=== PATIENT | female | born 1990 | race Caucasian/White ===

== ENCOUNTER 2019-02-02 17:09 | Emergency (ER) | payer OTHER, SELFPAY ==
[2019-02-02 17:10] VITALS: BP 119/79; PULSE 62; RESP 19; TEMP 36.5; O2SAT 98; BMI 26.6
--- NOTE | 2019-02-02 17:30 | ED.EXTPRO ---
HPI - Extremity Problem General Chief complaint: Extremity Problem,Nontraumatic Stated complaint: states poison madelyn burn left arm, not improving Time Seen by Provider: 02/02/19 17:11 Source: patient Mode of arrival: ambulatory Limitations: no limitations History of Present Illness HPI Narrative: 28-year-old female nonsmoker and otherwise healthy presents with worsening poison madelyn rash her left upper extremity. She has multiple itchy clear fluid-filled blisters on red swollen skin. She developed this rash after camping. 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 She denies any tongue lip or throat swelling. She denies any difficulty breathing. MD Complaint: extremity swelling Onset (ago): day(s) Location: left Quality: burning Radiation: none Related Data Previous Rx's Medication Instructions Recorded prednisone 20 mg PO BID 5 Days #10 tab 02/02/19 Allergies Allergy/AdvReac Type Severity Reaction Status Date / Time No Known Drug Allergies Allergy Verified 02/02/19 17:22 Review of Systems Constitutional Denies chills, Denies fever(s), Denies lethargy and Denies weakness Eyes Denies change in vision, Denies eye discharge, Denies irritation and Denies loss of vision ENT Ears, Nose, Mouth, and Throat: Denies change in voice, Denies neck pain and Denies sore throat Cardiovascular Denies chest pain, Denies irregular heart rhythm, Denies lightheadedness, Denies palpitations, Denies dyspnea, Denies dyspnea on exertion and Denies orthopnea Respiratory Denies cough, Denies dyspnea, Denies dyspnea on exertion and Denies wheezing Gastrointestinal Gastrointestinal: Denies abdominal pain, Denies change in bowel habits, Denies diarrhea, Denies nausea and Denies vomiting Genitourinary Denies hematuria, Denies flank pain, Denies urinary incontinence and Denies urinary urgency Musculoskeletal Denies neck pain Integumentary/Breasts Denies pruritus, Denies erythema, Denies rash, Reports skin pain, Reports skin swelling and Denies wounds Neurologic Denies confusion, Denies loss of vision and Denies weakness Psychiatric Denies anxiety, Denies confusion, Denies depression, Denies homicidal ideation and Denies suicidal ideation Endocrine Denies palpitations Hematologic/Lymphatic Denies easy bruising Allergic/Immunologic Denies wheezing [facility] Social History Smoking Status: Never smoker Social History Smoking Status: Never smoker Exam Narrative Exam Narrative: GEN: AOx3 and in mild distress EYES: Pupils are equal, round, and reactive to light and accommodation. Extraoccular muscles are intact bilaterally. There is no subconjunctival hemorrhage or exudate. CHEST: Lungs are clear to auscultation bilaterally and free of wheezes, rales, or rhonchi. Heart rate is regular rhythm, there are no murmurs, clicks, rubs, or gallops. There is no chest wall tenderness. ABD: Abdomen is soft and nontender. There is no guarding or rebound. Bowel sounds are normal in all 4 quadrants. There is no mass or organomegaly. EXT: Left upper extremity has some swelling with redness and multiple clear fluid-filled blisters which are intensely pruritic Full painless ROM of all extremities with no loss of sensation or strength. SKIN: Warm, pink, and dry. No erythema or rash Initial Vital Signs Initial Vital Signs: Vital Signs Temperature 97.7 F 02/02/19 17:10 Pulse Rate 62 02/02/19 17:10 Respiratory Rate 19 02/02/19 17:10 Blood Pressure 119/79 02/02/19 17:10 Pulse Oximetry 98 02/02/19 17:10 Course Vital Signs - 8 hr 02/02/19 17:10 Temperature 97.7 F Pulse Rate 62 Respiratory Rate 19 Blood Pressure 119/79 Pulse Oximetry 98 Discharge Plan Departure Patient Disposition: Home Clinical Impression: Rhus dermatitis Discharge Date/Time: 02/02/19 17:30 Interventions: ED Discharge Assessment Last Done: 02/02/19 17:29 Instructions: DI for Poison [place] Allergy, DI for Poison Madelyn Allergy Activity Restrictions/Additional Instructions: *You have been diagnosed with [ acute rhus dermatitis ] *What to do: *Take medications as directed: Your prescription for Prednisone was electronically transmitted to [facility] at your request *Also consider taking over the county Zyrtec (cetirizine) and Pepcid for the redness and itching *Follow up with your primary care provider in 2-3 days, call for an appointment. Let them know you were seen in the Emergency Department and that we ask that you be seen in follow up *Return to ER if you should have any new, worsening or concerning symptoms Prescriptions: New prednisone 20 mg tablet 20 mg PO BID 5 Days Qty: 10 RF: 0
== END 2019-02-02 17:30 | disposition home or self-care (01) ==
LOC: ED 17:27
PROVIDERS: Emergency Provider Emergency Medicine
DX: L25.5 Unspecified contact dermatitis due to plants, except food (principal)
CPT/HCPCS: 99282; 99283

== ENCOUNTER 2019-04-23 16:44 | Emergency (ER) | payer OTHER, SELFPAY ==
[2019-04-23 16:52] VITALS: BP 124/65; PULSE 81; RESP 15; TEMP 36.6; O2SAT 100
--- NOTE | 2019-04-23 17:04 | PC.NURSE ---
Couple weeks ago patient has severe sore throat, was evaluated for swelling in neck told she had swollen lymph nodes and prescribed aleve. Started having pain on left side of rib cage under the ribs. Denies pain with palpation of ribs but deeper pain with deep breaths. Denies cough, SOB or fever. Has been resting some minimal improvement with heating pad.
--- NOTE | 2019-04-23 17:23 | DI.RAD.S_ITS ---
PROCEDURE: XR CHEST 2V INDICATIONS: left rib pain recent virus TECHNIQUE: 2 views of the chest were acquired. COMPARISON: None. FINDINGS: Surgical changes and devices: None. Lungs and pleura: Lungs are clear. No pleural effusions or pneumothorax. Mediastinum: Mediastinal contours are normal. Heart size is normal. Bones and chest wall: No suspicious bony abnormalities. Soft tissues appear unremarkable. IMPRESSION: Mildly reduced inspiratory volume, no acute disease. Source is found. Dictated by: Shyam Carrero M.D. on 04/23/2019 at 17:46 Approved by: Shyam Carrero M.D. on 04/23/2019 at 17:46
[2019-04-23] MEDS: ACETAMINOPHEN 325 MG TABLET 975 MG PO (18:12)
--- NOTE | 2019-04-23 19:16 | ED.URI ---
HPI - URI/Sore Throat <NEVIN Collins - Last Filed: 04/23/19 19:48> General Chief Complaint: Upper Respiratory Symptoms Stated Complaint: PAIN ON LEFT SIDE OF RIB HARD TIME BREATHING Time Seen by Provider: 04/23/19 17:35 Source: patient Mode of arrival: ambulatory Limitations: no limitations History of Present Illness HPI Narrative: This is a 29-year-old female, nonsmoker, presents to ED with left-sided low rib cage discomfort for 1 week. Patient reports pain increases with movement, laughing, sleeping on left side. Patient denies cough, sore throat, fever, chills, nausea, vomiting or feeling sick. Denies any recent injury or trauma to the affected site. The patient reports recently seen in [facility] about a week ago and had negative test results for mono infection, strep throat infection. Patient also had enlarged lymph nodes and had ultrasound test done and diagnosed with reactive submandibular lymph nodes. Patient denies having blood clotting problems in the past. She denies taking estrogen or prolonged recent travel. Patient has been taking Naprosyn twice a day for this. Patient has IUD for control method. Related Data Previous Rx's Medication Instructions Recorded tramadol 50 mg PO BID PRN #7 tab MDD 1- 2 04/23/19 tabs Allergies Allergy/AdvReac Type Severity Reaction Status Date / Time No Known Drug Allergies Allergy Verified 02/02/19 17:22 Review of Systems <NEVIN Collins - Last Filed: 04/23/19 19:48> Review of Systems ROS Unobtainable: All systems reviewed & are unremarkable except as noted in HPI and below PFSH <NEVIN Collins - Last Filed: 04/23/19 19:48> Medical History No significant past medical history (Acute) No significant past surgical history (Acute) Social History Smoking Status: Never smoker Social History Smoking Status: Never smoker Exam <NEVIN Collins - Last Filed: 04/23/19 19:48> Narrative Exam Narrative: GEN: Alert, oriented x 3, well appearing and nourished, and in no acute distress. Head: Normal cephalic, atraumatic. No scalp or temporal tenderness, palpable mass or rash. EYES: Pupils are equal, round, and reactive to light and accommodation. Extraocular muscles are intact bilaterally. There is no subconjunctival hemorrhage, exudate and sclera non-icteric. ENT: Hearing grossly intact. Nose without bleeding, purulent discharge. Mucous membrane moist, no mucosal lesion. Throat without erythema or exudates but with tonsillar hypertrophy. Uvula in midline, airway patent. Neck: Trachea in midline. No JVD, non-tender to palpate in cervical lymph nodes. Bilateral cervical lymph nodes mildly enlarged. No masses or thyroid megaly. Supple, non-tender and no meningeal signs. CARDIAC: Normal regular rate and rhythm without murmurs, gallops, or rubs. No chest wall tenderness. No peripheral edema, cyanosis or pallor. Capillary refill is less than 2 seconds. RESPIRATORY: Lungs are cleat to auscultate bilaterally. No cough, wheezes, rales, or rhonchi. No stridor, respiratory distress, increase work of breathing, or accessary muscle used. ABD: Abdomen soft, nontender and non-distended. No guarding or rebound tenderness to palpate. Bowel sounds are normal in all 4 quadrants. There is no palpable masses or organomegaly. EXT: Full painless ROM of all extremities with no loss of sensation, strength, effusion or edema. SKIN: Warm, dry, normal color for patient. No erythema, lesions or rash over visible areas. BACK: Nontender without deformity or crepitance. No flank tenderness. NEUROLOGICAL: Alert and oriented to place, time and person. Sensation and motor function intact bilaterally. No facial droops, dysphasia. PSYCHIATRIC: Good judgement and reason, without hallucinations, abnormal affect or abnormal behaviors during the examination. Initial Vital Signs Initial Vital Signs: Vital Signs Temperature 97.8 F 04/23/19 16:52 Pulse Rate 81 04/23/19 16:52 Respiratory Rate 15 04/23/19 16:52 Blood Pressure 124/65 04/23/19 16:52 Pulse Oximetry 100 04/23/19 16:52 <Savi Peck MD - Last Filed: 04/23/19 19:56> Initial Vital Signs Initial Vital Signs: Vital Signs Temperature 97.8 F 04/23/19 16:52 Pulse Rate 81 04/23/19 16:52 Respiratory Rate 15 04/23/19 16:52 Blood Pressure 124/65 04/23/19 16:52 Pulse Oximetry 100 04/23/19 16:52 Course <NEVIN Collins - Last Filed: 04/23/19 19:48> Orders Ordered: ED Orders 04/23/19 17:23 XR chest 2V Stat Discontinued Medications Acetaminophen (Tylenol) 975 mg PO NOW ONE Stop: 04/23/19 18:09 Last Admin: 04/23/19 18:12 Dose: 975 mg Vital Signs - 8 hr 04/23/19 16:52 Temperature 97.8 F Pulse Rate 81 Respiratory Rate 15 Blood Pressure 124/65 Pulse Oximetry 100 <Savi Peck MD - Last Filed: 04/23/19 19:56> Orders Ordered: ED Orders 04/23/19 17:23 XR chest 2V Stat Discontinued Medications Acetaminophen (Tylenol) 975 mg PO NOW ONE Stop: 04/23/19 18:09 Last Admin: 04/23/19 18:12 Dose: 975 mg Vital Signs - 8 hr 04/23/19 16:52 Temperature 97.8 F Pulse Rate 81 Respiratory Rate 15 Blood Pressure 124/65 Pulse Oximetry 100 MDM - URI/Sore Throat <NEVIN Collins - Last Filed: 04/23/19 19:48> Differential Diagnosis Differential diagnosis: Likely pharyngitis and other (Chest wall pain, pleuritic chest pain, pneumonia, PE, shingles) Medical Records Attestation: I reviewed the patient's medical records. Imaging Data Chest x-ray: Radiologist's impression: [address] [address] XRay Report Signed Patient: Riley Horn#: [id number] : 1990Acct:[id number] Age/Sex: 29 / FDate of Service: 04/23/19 Loc: ED Accession Number: [id number] Procedure: XR chest 2V Ordering Provider: Delbert Hoffman PROCEDURE: XR CHEST 2V INDICATIONS: left rib pain recent virus TECHNIQUE: 2 views of the chest were acquired. COMPARISON: None. FINDINGS: Surgical changes and devices: None. Lungs and pleura: Lungs are clear. No pleural effusions or pneumothorax. Mediastinum: Mediastinal contours are normal. Heart size is normal. Bones and chest wall: No suspicious bony abnormalities. Soft tissues appear unremarkable. IMPRESSION: Mildly reduced inspiratory volume, no acute disease. Source is found. Dictated by: Shyam Carrero M.D. on 04/23/2019 at 17:46 Approved by: Shyam Carrero M.D. on 04/23/2019 at 17:46 [facility] Narrative Medical decision making narrative: The patient has been having left-sided under the rib discomfort for a week. Patient was seen and [facility] about a week ago for some mandibular lymph node swelling on the right side. She brought her test results from [facility] today which showed negative acute mono infection. 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 HPV-1 was negative per the test. Patient was not tachycardia while in ED. Patient is not currently on estrogen or or is a smoker. He denies having recent prolonged travel to be considered pulmonary embolism. Well's criteria for PE was 0. The patient's chest x-ray shows no acute findings. There was no rash noted on her back or along the rib area and rest of physical exam was benign. The patient was medicated with Tylenol in ED and DC to home with few tabs of Tramadol for night use during sleep for comfort. Return precautions were discussed with patient and patient does not have further questions at this time. Patient advised to up with her primary care physician in 2-3 days. Discharge Plan Departure Patient Disposition: Home Clinical Impression: Chest wall pain Discharge Date/Time: 04/23/19 18:58 Interventions: ED Discharge Assessment Last Done: 04/23/19 18:58 Instructions: DI for Costochondritis Activity Restrictions/Additional Instructions: You have been diagnosed with [chest wall pain, the chest x-ray shows no acute findings.]. What to do: *Take your medications as directed. Please continue to take [id number] Tylenol and ibuprofen as needed for discomfort. You could add Tramadol 1-2 tabs as needed for severe pain at night. This is going to cause drowsiness so please do not drive, drink alcohol, heavy equipments. *Follow up with your primary care provider in 2-3 days, call for an appointment. Let them know you were seen in the ED and that we asked you to be seen in follow up. *Return to ED if you have any new, worsening, or concerning symptoms, such as [breathing trouble, different chest pain, unable to tolerate fluids, dizziness, rash on the chest, or any acute concerns]. Prescriptions: New tramadol 50 mg tablet 50 mg PO BID MDD 1- 2 tabs PRN (Reason: pain) Qty: 7 RF: 0 Referrals: [facility] [Outside]
--- NOTE | 2019-04-23 19:30 | ED_ITS ---
HPI - URI/Sore Throat <NEVIN Collins - Last Filed: 04/23/19 19:48> General Chief Complaint: Upper Respiratory Symptoms Stated Complaint: PAIN ON LEFT SIDE OF RIB HARD TIME BREATHING Time Seen by Provider: 04/23/19 17:35 Source: patient Mode of arrival: ambulatory Limitations: no limitations History of Present Illness HPI Narrative: This is a 29-year-old female, nonsmoker, presents to ED with left-sided low rib cage discomfort for 1 week. Patient reports pain increases with movement, laughing, sleeping on left side. Patient denies cough, sore throat, fever, chills, nausea, vomiting or feeling sick. Denies any recent injury or trauma to the affected site. The patient reports recently seen in [facility] about a week ago and had negative test results for mono infection, strep throat infection. Patient also had enlarged lymph nodes and had ultrasound test done and diagnosed with reactive submandibular lymph nodes. Patient denies having blood clotting problems in the past. She denies taking estrogen or prolonged recent travel. Patient has been taking Naprosyn twice a day for this. Patient has IUD for control method. Related Data Previous Rx's Medication Instructions Recorded tramadol 50 mg PO BID PRN #7 tab MDD 1- 2 04/23/19 tabs Allergies Allergy/AdvReac Type Severity Reaction Status Date / Time No Known Drug Allergies Allergy Verified 02/02/19 17:22 Review of Systems <NEVIN Collins - Last Filed: 04/23/19 19:48> Review of Systems ROS Unobtainable: All systems reviewed & are unremarkable except as noted in HPI and below PFSH <NEVIN Collins - Last Filed: 04/23/19 19:48> Medical History No significant past medical history (Acute) No significant past surgical history (Acute) Social History Smoking Status: Never smoker Social History Smoking Status: Never smoker Exam <NEVIN Collins - Last Filed: 04/23/19 19:48> Narrative Exam Narrative: GEN: Alert, oriented x 3, well appearing and nourished, and in no acute distress. Head: Normal cephalic, atraumatic. No scalp or temporal tenderness, palpable mass or rash. EYES: Pupils are equal, round, and reactive to light and accommodation. Extraocular muscles are intact bilaterally. There is no subconjunctival hemorrhage, exudate and sclera non-icteric. ENT: Hearing grossly intact. Nose without bleeding, purulent discharge. Mucous membrane moist, no mucosal lesion. Throat without erythema or exudates but with tonsillar hypertrophy. Uvula in midline, airway patent. Neck: Trachea in midline. No JVD, non-tender to palpate in cervical lymph nodes. Bilateral cervical lymph nodes mildly enlarged. No masses or thyroid megaly. Supple, non-tender and no meningeal signs. CARDIAC: Normal regular rate and rhythm without murmurs, gallops, or rubs. No chest wall tenderness. No peripheral edema, cyanosis or pallor. Capillary refill is less than 2 seconds. RESPIRATORY: Lungs are cleat to auscultate bilaterally. No cough, wheezes, rales, or rhonchi. No stridor, respiratory distress, increase work of breathing, or accessary muscle used. ABD: Abdomen soft, nontender and non-distended. No guarding or rebound tenderness to palpate. Bowel sounds are normal in all 4 quadrants. There is no palpable masses or organomegaly. EXT: Full painless ROM of all extremities with no loss of sensation, strength, effusion or edema. SKIN: Warm, dry, normal color for patient. No erythema, lesions or rash over visible areas. BACK: Nontender without deformity or crepitance. No flank tenderness. NEUROLOGICAL: Alert and oriented to place, time and person. Sensation and motor function intact bilaterally. No facial droops, dysphasia. PSYCHIATRIC: Good judgement and reason, without hallucinations, abnormal affect or abnormal behaviors during the examination. Initial Vital Signs Initial Vital Signs: Vital Signs Temperature 97.8 F 04/23/19 16:52 Pulse Rate 81 04/23/19 16:52 Respiratory Rate 15 04/23/19 16:52 Blood Pressure 124/65 04/23/19 16:52 Pulse Oximetry 100 04/23/19 16:52 <Savi Peck MD - Last Filed: 04/23/19 19:56> Initial Vital Signs Initial Vital Signs: Vital Signs Temperature 97.8 F 04/23/19 16:52 Pulse Rate 81 04/23/19 16:52 Respiratory Rate 15 04/23/19 16:52 Blood Pressure 124/65 04/23/19 16:52 Pulse Oximetry 100 04/23/19 16:52 Course <NEVIN Collins - Last Filed: 04/23/19 19:48> Orders Ordered: ED Orders 04/23/19 17:23 XR chest 2V Stat Discontinued Medications Acetaminophen (Tylenol) 975 mg PO NOW ONE Stop: 04/23/19 18:09 Last Admin: 04/23/19 18:12 Dose: 975 mg Vital Signs - 8 hr 04/23/19 16:52 Temperature 97.8 F Pulse Rate 81 Respiratory Rate 15 Blood Pressure 124/65 Pulse Oximetry 100 <Savi Peck MD - Last Filed: 04/23/19 19:56> Orders Ordered: ED Orders 04/23/19 17:23 XR chest 2V Stat Discontinued Medications Acetaminophen (Tylenol) 975 mg PO NOW ONE Stop: 04/23/19 18:09 Last Admin: 04/23/19 18:12 Dose: 975 mg Vital Signs - 8 hr 04/23/19 16:52 Temperature 97.8 F Pulse Rate 81 Respiratory Rate 15 Blood Pressure 124/65 Pulse Oximetry 100 MDM - URI/Sore Throat <NEVIN Collins - Last Filed: 04/23/19 19:48> Differential Diagnosis Differential diagnosis: Likely pharyngitis and other (Chest wall pain, pleuritic chest pain, pneumonia, PE, shingles) Medical Records Attestation: I reviewed the patient's medical records. Imaging Data Chest x-ray: Radiologist's impression: [address] [address] XRay Report Signed Patient: Riley Horn#: [id number] : 1990Acct:[id number] Age/Sex: 29 / FDate of Service: 04/23/19 Loc: ED Accession Number: [id number] Procedure: XR chest 2V Ordering Provider: Delbert Hoffman PROCEDURE: XR CHEST 2V INDICATIONS: left rib pain recent virus TECHNIQUE: 2 views of the chest were acquired. COMPARISON: None. FINDINGS: Surgical changes and devices: None. Lungs and pleura: Lungs are clear. No pleural effusions or pneumothorax. Mediastinum: Mediastinal contours are normal. Heart size is normal. Bones and chest wall: No suspicious bony abnormalities. Soft tissues appear unremarkable. IMPRESSION: Mildly reduced inspiratory volume, no acute disease. Source is found. Dictated by: Shyam Carrero M.D. on 04/23/2019 at 17:46 Approved by: Shyam Carrero M.D. on 04/23/2019 at 17:46 [facility] Narrative Medical decision making narrative: The patient has been having left-sided under the rib discomfort for a week. Patient was seen and [facility] about a week ago for some mandibular lymph node swelling on the right side. She brought her test results from [facility] today which showed negative acute mono infection. 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 HPV-1 was negative per the test. Patient was not tachycardia while in ED. Patient is not currently on estrogen or or is a smoker. He denies having recent prolonged travel to be considered pulmonary embolism. Well's criteria for PE was 0. The patient's chest x-ray shows no acute findings. There was no rash noted on her back or along the rib area and rest of physical exam was benign. The patient was medicated with Tylenol in ED and DC to home with few tabs of Tramadol for night use during sleep for comfort. Return precautions were discussed with patient and patient does not have further questions at this time. Patient advised to up with her primary care physician in 2-3 days. Discharge Plan Departure Patient Disposition: Home Clinical Impression: Chest wall pain Discharge Date/Time: 04/23/19 18:58 Interventions: ED Discharge Assessment Last Done: 04/23/19 18:58 Instructions: DI for Costochondritis Activity Restrictions/Additional Instructions: You have been diagnosed with [chest wall pain, the chest x-ray shows no acute findings.]. What to do: *Take your medications as directed. Please continue to take [id number] Tylenol and ibuprofen as needed for discomfort. You could add Tramadol 1-2 tabs as needed for severe pain at night. This is going to cause drowsiness so please do not drive, drink alcohol, heavy equipments. *Follow up with your primary care provider in 2-3 days, call for an appointment. Let them know you were seen in the ED and that we asked you to be seen in follow up. *Return to ED if you have any new, worsening, or concerning symptoms, such as [breathing trouble, different chest pain, unable to tolerate fluids, dizziness, rash on the chest, or any acute concerns]. Prescriptions: New tramadol 50 mg tablet 50 mg PO BID MDD 1- 2 tabs PRN (Reason: pain) Qty: 7 RF: 0 Referrals: [facility] [Outside]
== END 2019-04-23 18:58 | disposition home or self-care (01) ==
PROVIDERS: Emergency Provider Nurse Practitioner Family
DX: R07.89 Other chest pain (principal)
CPT/HCPCS: 71046; 99282; 99283

== ENCOUNTER → 2024-01-02 07:05 | Outpatient (CLI) | payer OTHER, SELFPAY ==
--- NOTE | 2024-01-02 07:14 | DI.MRI.S_ITS ---
PROCEDURE: MR CERVICAL SPINE WO CON INDICATIONS: Nerve root and plexus disorder, unspecified TECHNIQUE: Noncontrast sagittal T1 spin echo and T2 fast spin echo, sagittal STIR, foraminal oblique sagittal T2 fast spin echo, and axial gradient echo or T2 fast spin echo through the cervical spine. COMPARISON: [facility], MR, MR THORACIC SPINE WO CON, 01/02/2024, 7:15. FINDINGS: Image quality: Excellent. Alignment and Curvature: There is there is minimal retrolisthesis of C5 on C6, C6 on C7. Bone Marrow: Marrow demonstrates normal overall signal. Spinal Cord: Visualized spinal cord has normal size and signal. No cerebellar tonsillar herniation. Paraspinous Soft Tissues: No paravertebral masses. Prevertebral soft tissues are normal in thickness. Discs: Mild desiccation is present C5-6, C6-7. C2-C3: No disc bulge, spinal stenosis or foraminal narrowing. C3-C4: No disc bulge or spinal stenosis. Minimal foraminal narrowing bilaterally. C4-C5: No disc bulge, spinal stenosis or foraminal narrowing. C5-C6: Mild disc bulge with right foraminal component protrusion. There is effacement of the anterior thecal sac. Mild bilateral foraminal narrowing. C6-C7: Mild disc bulge with superimposed posterior central protrusion. Mild spinal stenosis. Mild left and minimal right foraminal narrowing. C7-T1: No disc bulge, spinal stenosis or foraminal narrowing. IMPRESSION: Disc bulges including foraminal narrowing, mild are present C5-6 and C6-7. Dictated by: Donna Lora M.D. on 01/02/2024 at 8:11 Approved by: Donna Lora M.D. on 01/02/2024 at 8:14
--- NOTE | 2024-01-02 07:42 | DI.MRI.S_ITS ---
PROCEDURE: MR THORACIC SPINE WO CON INDICATIONS: Nerve root and plexus disorder, unspecified TECHNIQUE: Noncontrast sagittal T1 spine echo and T2 fast spin echo, sagittal STIR, and T2 fast spin echo through the thoracic spine. COMPARISON: [facility], , MR CERVICAL SPINE WO CON, 01/02/2024, 7:15. FINDINGS: Image quality: Excellent. Alignment and Curvature: There is normal bony alignment. Bone Marrow: Marrow is of normal overall signal. No acute vertebral body compression fractures. Spinal Cord: Visualized spinal cord is normal in size. There is a 1-2 mm focus of T2 signal within the central portion of the cord most prominent from T8 through T10. No abnormal signal is identified in the cervical cord. Given size and location,this is felt to represent mild prominence of the central canal related to congenital variation rather than syrinx. Paraspinous Soft Tissues: No paravertebral masses. Miscellaneous: On axial images, foramina appear widely patent at all scanned levels. Minimal disc bulges present at T4-5, T6-7, T10-11, T12-L1. Minimal appearance of canal narrowing at T11-12 IMPRESSION: Minimal scattered areas of disc bulges and canal narrowing as above. Dictated by: Donna Lora M.D. on 01/02/2024 at 8:14 Approved by: Donna Lora M.D. on 01/02/2024 at 8:17
== END ==
DX: M50.222 Other cervical disc displacement at C5-C6 level (principal); M50.322 Other cervical disc degeneration at C5-C6 level; M48.02 Spinal stenosis, cervical region
CPT/HCPCS: 72141; 72146

== ENCOUNTER → 2024-05-12 15:26 | Outpatient (CLI) | payer OTHER, SELFPAY ==
--- NOTE | 2024-05-12 15:27 | DI.MRI.S_ITS ---
PROCEDURE: MR CERVICAL SPINE WO CON INDICATIONS: cervical disc disorder TECHNIQUE: Noncontrast sagittal T1 spin echo and T2 fast spin echo, sagittal STIR, foraminal oblique sagittal T2 fast spin echo, and axial gradient echo or T2 fast spin echo through the cervical spine. COMPARISON: [facility], MR, MR CERVICAL SPINE WO CON, 01/02/2024, 7:15. FINDINGS: Image quality: Excellent. Alignment and Curvature: There is mild straightening of normal cervical lordosis.. Bone Marrow: Marrow demonstrates normal overall signal. Spinal Cord: Visualized spinal cord has normal size and signal. No cerebellar tonsillar herniation. Paraspinous Soft Tissues: No paravertebral masses. Prevertebral soft tissues are normal in thickness. C2-C3: Disc desiccation. No significant disc bulge, canal stenosis or neural foraminal narrowing. C3-C4: Disc desiccation. No significant disc bulge, canal stenosis or neural foraminal narrowing. C4-C5: Mild disc desiccation and broad-based disc bulge with slight flattening of thecal sac anteriorly and mild left-sided neural foraminal narrowing. C5-C6: Disc desiccation and loss of disc height. Broad-based disc bulge and bilateral uncovertebral hypertrophic changes causing mild central canal stenosis and moderate left-sided neural foraminal narrowing. Mild right-sided neural foraminal narrowing is also seen. Finding has progressed since previous study. C6-C7: Disc desiccation. Central to right-sided disc bulge and bilateral uncovertebral hypertrophic changes are seen with mild central canal stenosis and mild left worse than right bilateral neural foraminal narrowing. C7-T1: Normal appearance. IMPRESSION: 1. Degenerative disc disease in mid to lower cervical spine causing various degrees of central canal stenosis and bilateral neural foraminal narrowing slightly progressed compared to previous study as described above. 2. No marrow edema. No acute fracture or dislocation. No abnormal cervical spinal cord signal. Dictated by: Dmitry Darling M.D. on 05/14/2024 at 14:01 Approved by: Dmitry Darling M.D. on 05/14/2024 at 14:08
== END ==
LOC: MRI 15:26
DX: M50.121 Cervical disc disorder at C4-C5 level with radiculopathy (principal); M48.02 Spinal stenosis, cervical region
CPT/HCPCS: 72141

== ENCOUNTER → 2025-06-03 13:17 | Outpatient (CLI) | payer OTHER, SELFPAY | PROVIDERS: Visit Provider Chiropractor | DX: J45.909 Unspecified asthma, uncomplicated (principal); D50.9 Iron deficiency anemia, unspecified | CPT/HCPCS: 94060 ==